=== PATIENT | male | born 1955 | race Caucasian/White ===

== ENCOUNTER → 2022-12-10 | Outpatient (CLI) | payer MEDICARE ==
[2022-12-10 11:18] LABS: INR 1.4 (<1.2); Prothrombin Time 13.8 sec (9.0-12.0)
== END | disposition home or self-care (01) ==
LOC: LABWHC1 09:47
PROVIDERS: ATTEND Dentist Oral and Maxillofacial Surgery
DX: D68.32 Hemorrhagic disorder due to extrinsic circulating anticoagulants (principal)
CPT/HCPCS: 36415; 85610

== ENCOUNTER 2024-04-10 09:52 | Observation (INO) | payer MEDICARE, OTHER ==
[2024-04-10] MEDS: SODIUM CHLORIDE 0.9% 1,000 ML IV ONE (10:10)
[2024-04-10] MEDS: MORPHINE SULFATE 4 MG/ML SYRINGE IVP STA (10:12)
[2024-04-10] MEDS: KETOROLAC 15 MG/ML 1 ML VIAL IVP STA (10:12)
[2024-04-10] MEDS: PANTOPRAZOLE 40 MG/10 ML VIAL IVP STA (10:12)
[2024-04-10] MEDS: SODIUM CHLORIDE 0.9% 1,000 ML IV STA (10:13)
[2024-04-10 10:15] LABS: Basophils % (A) 1 %; Eosinophils # (A) 0.1 k/uL (0-0.7); Eosinophils % (A) 2 %; HCT 40.8 % (39.0-53.0); HGB 13.7 gm/dL (13.0-17.5); Lymphocytes # (A) 1.5 k/uL (1.0-4.8); Lymphocytes % (A) 25 %; MCH 30.4 pg (25.0-35.0); MCHC 33.5 g/dL (31.0-37.0); MCV 90.6 fL (80.0-100.0); Mean Platelet Volume 8.2; Monocytes # (A) 0.3 k/uL (0-1.0); Monocytes % (A) 6 %; Neutrophils # (A) 3.8 k/uL (1.3-7.7); Neutrophils % (A) 64 %; Platelet Count 169 k/uL (150-450); RDW 14.2 % (11.5-15.5); WBC 5.8 k/uL (3.8-10.6)
[2024-04-10 10:24] LABS: INR 3.5 (<1.2); Partial Thromboplastin Time 38.7 sec (22.0-30.0); Prothrombin Time 34.5 sec (10.0-12.5)
[2024-04-10 10:28] LABS: ALT 64 U/L (4-49); AST 49 U/L (17-59); African American GFR (CKD) >90 (>60 ml/min/1.73 sqM); Albumin 4.9 g/dL (3.5-5.0); Alkaline Phosphatase 71 U/L (38-126); Anion Gap 9 mmol/L; Blood Urea Nitrogen 14 mg/dL (9-20); Calcium 9.1 mg/dL (8.4-10.2); Carbon Dioxide 24 mmol/L (22-30); Chloride 106 mmol/L (98-107); Glucose 120 mg/dL (74-99); Magnesium 1.8 mg/dL (1.6-2.3); Non-African American GFR(CKD) >90 (>60 ml/min/1.73 sqM); Potassium 4.7 mmol/L (3.5-5.1); Sodium 139 mmol/L (137-145); Total Bilirubin 0.6 mg/dL (0.2-1.3); Total Protein 7.5 g/dL (6.3-8.2)
--- NOTE | 2024-04-10 10:33 | ED ---
General Adult HPI - General Chief complaint: Chest Pain Stated complaint: Chest Pain Time Seen by Provider: 04/10/24 09:52 Source: patient, EMS, RN notes reviewed, old records reviewed Limitations: no limitations - History of Present Illness Initial comments: Is a 69-year-old male presents emergency department plaint of chest pain. Patient does have a history of CAD with a prior cardiac stent, hyperlipidemia, diabetes, hypertension, chronic shoulder issues. Patient states that he woke at 0 500 today from chest pain. It was in the left chest with radiation to the left shoulder and down the left arm. Took nitro without relief. Received 3 additional nitro without relief. Workup at the outside facility negative for cardiac workup. Troponin was undetectable and EKG unremarkable. Patient is chest pain did not respond to nitro but it did respond to morphine. Transferred here as he follows up with cardiology here [facility]. Patient was transferred from [facility]. - Related Data Home Medications Medication Instructions Recorded Confirmed Atorvastatin [Lipitor] 80 mg PO DAILY 12/13/22 04/10/24 Celecoxib [CeleBREX] 100 mg PO W/BRKFST 12/13/22 04/10/24 Gabapentin 300 mg PO TID 12/13/22 04/10/24 Isosorbide Mononitrate ER [Imdur] 30 mg PO DAILY 12/13/22 04/10/24 Lacosamide [Vimpat] 150 mg PO BID 12/13/22 04/10/24 Metoprolol Tartrate [Lopressor] 25 mg PO BID 12/13/22 04/10/24 [place]-3 Acid Ethyl Esters [Lovaza] 1 gm PO BID 12/13/22 04/10/24 Omeprazole 20 mg PO DAILY 12/13/22 04/10/24 Warfarin Sodium 6 mg PO HS 12/13/22 04/10/24 allopurinoL [Zyloprim] 100 mg PO BID 12/13/22 04/10/24 lisinopriL [Zestril] 10 mg PO DAILY 12/13/22 04/10/24 metFORMIN HCL 500 mg PO BID 12/13/22 04/10/24 Sulfamethox-Tmp 800-160Mg [Bactrim 1 tab PO Q12HR 04/10/24 04/10/24 DS 800-160 mg] valACYclovir HCL [Valacyclovir] 1,000 mg PO BID 04/10/24 04/10/24 Allergies Allergy/AdvReac Type Severity Reaction Status Date / Time No Known Allergies Allergy Verified 04/10/24 10:32 Review of Systems ROS Statement: Those systems with pertinent positive or pertinent negative responses have been documented in the HPI. Review of Systems: CONST: Denies fever EYES: Denies blurry vision ENT: Denies nasal congestion C/V: Endorses improved left-sided chest pain. RESP: Denies shortness of breath GI: Denies abdominal pain : Denies dysuria SKIN: Denies rash. MSK: Denies joint pain. NEURO: Denies headache ROS Other: All systems not noted in ROS Statement are negative. Past Medical History Past Medical History: Coronary Artery Disease (CAD), Chest Pain / Angina, CVA/TIA, Diabetes Mellitus, Fibromyalgia, GERD/Reflux, Hyperlipidemia, Hypertension, Pneumonia, Pulmonary Embolus (PE), Seizure Disorder, Sleep Apnea/CPAP/BIPAP, Syncope Additional Past Medical History / Comment(s): degenerative disc disease History of Any Multi-Drug Resistant Organisms: None Reported Past Surgical History: Back Surgery, Heart Catheterization With Stent Additional Past Surgical History / Comment(s): plate in neck, left arm, left shoulder Date of Last Stent Placement:: 2016 Past Psychological History: No Psychological Hx Reported Smoking Status: Former smoker Past Alcohol Use History: Heavy Past Drug Use History: None Reported General Exam - General Exam Comments Initial Comments: General: Appears in no acute distress. HEAD: Normal with no signs of head trauma. EYES: PERRLA, EOMI, conjunctiva normal, no discharge. ENT: Hearing grossly intact, normal oropharynx. RESPIRATORY: Clear breath sounds bilaterally. No wheezes, rales, or rhonchi. C/V: Regular rate and rhythm. S1 and S2 auscultated, no edema, peripheral pulses 2+ and intact throughout ABD: Abd is soft, nontender, nondistended EXT: Chest pain is reproducible on palpation over the left anterior chest wall with radiation towards the left shoulder. Worse with movement of the left shoulder as well. SKIN: No rashes or lesions observed on exposed skin. NEURO: Alert and oriented x 4. Limitations: no limitations Course Vital Signs 04/10/24 04/10/24 04/10/24 09:53 10:40 11:03 Temperature 62 F L Pulse Rate 74 Respiratory 20 Rate Blood Pressure 139/96 83/53 89/54 O2 Sat by Pulse 96 Oximetry Medical Decision Making - Medical Decision Making Was pt. sent in by a medical professional or institution (ALEXA Gavin, SAFETY NET MAKER, urgent care, hospital, or long term...) When possible be specific @ -Transferred from [facility] for cardiac observation. Did you speak to anyone other than the patient for history (EMS, parent, family, police, friend...)? What history was obtained from this source @ -No Did you review nursing and triage notes (agree or disagree)? Why? @ -I reviewed and agree with nursing and triage notes Were old charts reviewed (outside hosp., previous admission, EMS record, old EKG, old radiological studies, urgent care reports/EKG's, long term records)? Report findings @ -Reviewed chart from [facility] which revealed unremarkable EKG as well as undetectable troponin. Remainder the blood work was unremarkable as well. Chest x-ray revealed no obvious acute cardiopulmonary process. Differential Diagnosis (chest pain, altered mental status, abdominal pain women, abdominal pain men, vaginal bleeding, weakness, fever, dyspnea, syncope, headache, dizziness, GI bleed, back pain, seizure, CVA, palpatations, mental health, musculoskeletal)? @ -Differential Chest Pain: Stable Angina, Unstable Angina, STEMI, NSTEMI Aortic Dissection, Pneumothorax, Musculoskeletal, Esophageal Spasm GERD, Cholecystitis, Pancreatitis, Zoster, this is not meant to be an all-inclusive list. EKG interpreted by me (3pts min.). @ -As above X-rays interpreted by me (1pt min.). @ -None done CT interpreted by me (1pt min.). @ -None done U/S interpreted by me (1pt. min.). @ -None done What testing was considered but not performed or refused? (CT, X-rays, U/S, labs)? Why? @ -None What meds were considered but not given or refused? Why? @ -Considered aspirin however patient already received aspirin by EMS earlier this morning.Chest pain did not respond to nitro at outside facility and therefore no additional nitro will be administered at this time. Did you discuss the management of the patient with other professionals (professionals i.e. ALEXA Gavin, SAFETY NET MAKER, lab, RT, psych nurse, social service technician, day treatment clinician/art therapist, teacher, command center officer, registered nurse hh case manager)? Give summary @ -Discussed with consumer advocate Dr. Honeycutt who is rounding in the ER at the time and did evaluate the patient at bedside with myself. Agrees that this seems more likely chest wall pain but recommended Toradol, Protonix administration was in agreement plan for trending the troponin. Spoke with the admitting provider, Dr. Rivera who accepted the admission. Was smoking cessation discussed for >3mins.? @ -No Was critical care preformed (if so, how long)? @ -No Were there social determinants of health that impacted care today? How? (Homelessness, low income, unemployed, alcoholism, drug addiction, transportat ion, low edu. Level, literacy, decrease access to med. care, fci, rehab)? @ -No Was there de-escalation of care discussed even if they declined (Discuss DNR or withdrawal of care, Hospice)? DNR status @ -No What co-morbidities impacted this encounter? (DM, HTN, Smoking, COPD, CAD, Cancer, CVA, ARF, Chemo, Hep., AIDS, mental health diagnosis, sleep apnea, morbid obesity)? @ -CAD Was patient admitted / discharged? Hospital course, mention meds given and route, prescriptions, significant lab abnormalities, going to OR and other pertinent info. @ -Patient presents as a transfer from [facility] for cardiac observation. Seems to be more chest wall pain. Discussed and evaluated patient with Dr. Honeycutt of cardiology who agreed. However we will admit the patient cardiac observation. He will be given IV morphine, Toradol, Protonix as well as started on maintenance fluids. Will repeat repeat labs and EKG. Chest x-ray will be uploaded to our system. Patient was in agreement this plan. Vitals are within acceptable limits. EKG shows no signs of acute ischemia.Patient's labs remarkable for elevated INR in the setting of Coumadin use at 3.5. Troponin is undetectable. Patient had an episode of what appeared to be vasovagal syncope. Patient's chest pain was resolved at that time. Nitroglycerin paste was removed as it does not appear to be effective at this time. Patient was bolused a liter of fluid and symptoms resolved. Resting comfortably at that time. Repeat EKG showed no dynamic changes. Undiagnosed new problem with uncertain prognosis? @ -No Drug Therapy requiring intensive monitoring for toxicity (Heparin, Nitro, Insulin, Cardizem)? @ -No Were any procedures done? @ -No Diagnosis/symptom? @ -Chest pain Acute, or Chronic, or Acute on Chronic? @ -Acute Uncomplicated (without systemic symptoms) or Complicated (systemic symptoms)? @ -Complicated Side effects of treatment? @ -No Exacerbation, Progression, or Severe Exacerbation? @ -No Poses a threat to life or bodily function? How? (Chest pain, [place], [place], pneumonia, PE, COPD, DKA, ARF, appy, cholecystitis, CVA, Diverticulitis, Homicidal, Suicidal, threat to staff... and all critical care pts) @ -Potentially, yes - Lab Data Result diagrams: 04/10/24 10:04 04/10/24 10: Lab Results 04/10/24 04/10/24 04/10/24 Range/Units 10:04 10:04 10:04 WBC 5.8 (3.8-10.6) k/uL RBC 4.50 (4.30-5.90) m/uL Hgb 13.7 (13.0-17.5) gm/dL Hct 40.8 (39.0-53.0) % MCV 90.6 (80.0-100.0) fL MCH 30.4 (25.0-35.0) pg MCHC 33.5 (31.0-37.0) g/dL RDW 14.2 (11.5-15.5) % Plt Count 169 (150-450) k/uL MPV 8.2 Neutrophils % 64 % Lymphocytes % 25 % Monocytes % 6 % Eosinophils % 2 % Basophils % 1 % Neutrophils # 3.8 (1.3-7.7) k/uL Lymphocytes # 1.5 (1.0-4.8) k/uL Monocytes # 0.3 (0-1.0) k/uL Eosinophils # 0.1 (0-0.7) k/uL Basophils # 0.0 (0-0.2) k/uL PT 34.5 H (10.0-12.5) sec INR 3.5 H (<1.2) APTT 38.7 H (22.0-30.0) sec Sodium 139 (137-145) mmol/L Potassium 4.7 (3.5-5.1) mmol/L Chloride 106 (98-107) mmol/L Carbon Dioxide 24 (22-30) mmol/L Anion Gap 9 mmol/L BUN 14 (9-20) mg/dL Creatinine 0.82 (0.66-1.25) mg/dL Est GFR (CKD-EPI)AfAm >90 (>60 ml/min/1.73 sqM) Est GFR (CKD-EPI)NonAf >90 (>60 ml/min/1.73 sqM) Glucose 120 H (74-99) mg/dL Calcium 9.1 (8.4-10.2) mg/dL Magnesium 1.8 (1.6-2.3) mg/dL Total Bilirubin 0.6 (0.2-1.3) mg/dL AST 49 (17-59) U/L ALT 64 H (4-49) U/L Alkaline Phosphatase 71 (38-126) U/L Troponin I (0.000-0.034) ng/mL Total Protein 7.5 (6.3-8.2) g/dL Albumin 4.9 (3.5-5.0) g/dL 04/10/24 Range/Units 10:04 WBC (3.8-10.6) k/uL RBC (4.30-5.90) m/uL Hgb (13.0-17.5) gm/dL Hct (39.0-53.0) % MCV (80.0-100.0) fL MCH (25.0-35.0) pg MCHC (31.0-37.0) g/dL RDW (11.5-15.5) % Plt Count (150-450) k/uL MPV Neutrophils % % Lymphocytes % % Monocytes % % Eosinophils % % Basophils % % Neutrophils # (1.3-7.7) k/uL Lymphocytes # (1.0-4.8) k/uL Monocytes # (0-1.0) k/uL Eosinophils # (0-0.7) k/uL Basophils # (0-0.2) k/uL PT (10.0-12.5) sec INR (<1.2) APTT (22.0-30.0) sec Sodium (137-145) mmol/L Potassium (3.5-5.1) mmol/L Chloride (98-107) mmol/L Carbon Dioxide (22-30) mmol/L Anion Gap mmol/L BUN (9-20) mg/dL Creatinine (0.66-1.25) mg/dL Est GFR (CKD-EPI)AfAm (>60 ml/min/1.73 sqM) Est GFR (CKD-EPI)NonAf (>60 ml/min/1.73 sqM) Glucose (74-99) mg/dL Calcium (8.4-10.2) mg/dL Magnesium (1.6-2.3) mg/dL Total Bilirubin (0.2-1.3) mg/dL AST (17-59) U/L ALT (4-49) U/L Alkaline Phosphatase (38-126) U/L Troponin I <0.012 (0.000-0.034) ng/mL Total Protein (6.3-8.2) g/dL Albumin (3.5-5.0) g/dL - EKG Data -: EKG Interpreted by Me EKG Comments: 12-lead Electrocardiogram Interpretation Note EKG was reviewed and interpreted by myself. 12-lead ECG performed at 1010 is interpreted by me as revealing normal sinus rhythm at a rate of 65 beats per mi nute. [place] is normal. IA interval is 177 ms, QRS durations 119 ms, QTc is 391 ms.. There were no ST or T wave abnormalities to suggest myocardial ischemia or injury. R wave progression across the precordium was satisfactory. By my interpretation this EKG is non-diagnostic for acute ischemia. 12-lead Electrocardiogram Interpretation Note EKG was reviewed and interpreted by myself. 12-lead ECG performed at 1047 is interpreted by me as revealing sinus bradycardia at a rate of 42 beats per mi nute. [place] is normal. IA interval is 165 ms, QRS duration is 111 ms, QTc is 383 ms.. There were no ST or T wave abnormalities to suggest myocardial ischemia or injury. R wave progression across the precordium was satisfactory. By my interpretation this EKG is non-diagnostic for acute ischemia. Disposition Clinical Impression: Chest pain Disposition: ADMITTED IP TO THIS [facility] Condition: Stable Time of Disposition: 10:33
[2024-04-10] MEDS ORDERED: NALOXONE 0.4 MG/ML 1 ML VIAL IV PRN (10:36)
[2024-04-10] MEDS ORDERED: MORPHINE SULFATE 4 MG/ML SYRINGE IV PRN (10:36)
[2024-04-10] MEDS ORDERED: DEXTROSE 50% SYRINGE 50 ML IVP PRN ×2 (12:54)
[2024-04-10 13:06] LABS: Glucose,Whole Blood 113 mg/dL (70-110)
[2024-04-10] MEDS: INSULIN ASPART (NovoLOG) 100 UNIT/ML VIAL SQ SCH (13:06)
[2024-04-10] MEDS: ATORVASTATIN 80 MG TAB PO SCH (13:13)
[2024-04-10] MEDS: allopurinoL 100 MG TAB PO SCH (13:13)
[2024-04-10] MEDS: lisinopriL 10 MG TAB PO SCH (13:14)
[2024-04-10] MEDS: LACOSAMIDE 150 MG TABLET PO SCH (13:14)
[2024-04-10] MEDS: NON FORMULARY DRUG (Omeprazole [Omeprazole] 20 MG Capsule.Dr) PO SCH (13:14)
[2024-04-10] MEDS: ISOSORBIDE MONONITRATE ER 30 MG TAB.ER.24H PO SCH (13:14)
[2024-04-10] MEDS: METOPROLOL TARTRATE 25 MG TAB PO SCH (13:14)
[2024-04-10] MEDS: GABAPENTIN 300 MG CAP PO SCH (15:32)
[2024-04-10 17:01] LABS: Glucose,Whole Blood 157 mg/dL (70-110)
[2024-04-10] MEDS: metFORMIN 500 MG TAB PO SCH (17:04)
--- NOTE | 2024-04-10 20:38 | P.HPIM ---
History of Present Illness H&P Date: 04/10/24 Chief Complaint: Sharp chest pain This is a pleasant 69-year-old patient follows Dr. Wayne Durán. Patient has known CAD with stent. About 11 years ago. About 5 AM woken up with with sharp pains in the left side of the chest. Going down the left arm. No dizziness no lightheadedness. No shortness of breath. Symptoms lasted good over 2 hours. Patient had a cold about 3 weeks ago. Also recovered from shingles. 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 Review of systems: GEN.: None EYES: None HEENT: None NECK: None RESPIRATORY: None CARDIOVASCULAR: As above GASTROINTESTINAL: None GENITOURINARY: None MUSCULOSKELETAL: Some joint pains LYMPHATICS: None HEMATOLOGICAL: None PSYCHIATRY: None NEUROLOGICAL: None Past medical history to include: CAD with stent about 11years ago, diabetes, fibromyalgia, GERD, hypertension, hyperlipidemia, pulmonary embolism, seizure disorder, obstructive sleep apnea uses CPAP, DJD, back surgery Social history: Patient smoked up to 3 packs a day for 36 years stopped about 17years ago. Alcohol use in the past l. Lives alone. On SSI. Physical examination: VITAL SIGNS: Afebrile, 74, 20, 139 x 96, 96% room GENERAL: BMI 35.2, resting in bed comfortable EYES: Pupils equal. Conjunctiva normal. HEENT: External appearance of nose and ears normal, oral cavity grossly normal. NECK: JVD not raised; masses not palpable. HEART: First and second heart sounds are normal; no edema. LUNGS: Respiratory rate normal; decreased breath sounds. ABDOMEN: Soft, nontender, liver spleen not palpable, no masses palpable. PSYCH: Alert and oriented x3; mood and affect normal. MUSCULOSKELETAL:No Clubbing/cyanosis;muscles-grossly intact some reproducible pain left costochondral junction NEUROLOGICAL: Cranial nerves grossly intact; no facial asymmetry, power and sensation grossly intact. LYMPHATICS: No lymph nodes palpable in the axilla and neck INVESTIGATIONS, reviewed in the clinical context: April 10: White count 5.8 hemoglobin 13.7 platelets 169 sodium 139 potassium 4.7 creatinine 0.82 Troponin I less than 0.012 x 3 Assessment and plan: -Left chest wall pain some reproducibility in a patient with known coronary artery disease. Aspirin. Lipitor. Lopressor. Cardiology consulted. Troponin negative -CAD with a prior stent Aspirin, Lipitor, Lopressor. -GERD Protonix -Diabetes mellitus type 2 on oral hypoglycemic Glucophage -Primary osteoarthritis Celebrex -Essential hypertension Lopressor, Zestril, -Hyperuricemia Allopurinol -Hyperlipidemia Lipitor 80 mg -Seizure disorder vimpat -Chronic pulmonary embolism On Coumadin -Full code Care was discussed with the patient. Cardiology consulted. Past Medical History Past Medical History: Coronary Artery Disease (CAD), Chest Pain / Angina, CVA/TIA, Diabetes Mellitus, Fibromyalgia, GERD/Reflux, Hyperlipidemia, Hype rtension, Pneumonia, Pulmonary Embolus (PE), Seizure Disorder, Sleep Apnea/CPAP/BIPAP, Syncope Additional Past Medical History / Comment(s): degenerative disc disease History of Any Multi-Drug Resistant Organisms: None Reported Past Surgical History: Back Surgery, Heart Catheterization With Stent Additional Past Surgical History / Comment(s): plate in neck, left arm, left shoulder Date of Last Stent Placement:: 2016 Past Psychological History: No Psychological Hx Reported Smoking Status: Former smoker Past Alcohol Use History: Heavy Past Drug Use History: None Reported Medications and Allergies Home Medications Medication Instructions Recorded Confirmed Type Atorvastatin [Lipitor] 80 mg PO DAILY 12/13/22 04/10/24 History Celecoxib [CeleBREX] 100 mg PO W/BRKFST 12/13/22 04/10/24 History Gabapentin 300 mg PO TID 12/13/22 04/10/24 History Isosorbide Mononitrate ER [Imdur] 30 mg PO DAILY 12/13/22 04/10/24 History Lacosamide [Vimpat] 150 mg PO BID 12/13/22 04/10/24 History Metoprolol Tartrate [Lopressor] 25 mg PO BID 12/13/22 04/10/24 History [place]-3 Acid Ethyl Esters [Lovaza] 1 gm PO BID 12/13/22 04/10/24 History Omeprazole 20 mg PO DAILY 12/13/22 04/10/24 History Warfarin Sodium 6 mg PO HS 12/13/22 04/10/24 History allopurinoL [Zyloprim] 100 mg PO BID 12/13/22 04/10/24 History lisinopriL [Zestril] 10 mg PO DAILY 12/13/22 04/10/24 History metFORMIN HCL 500 mg PO BID 12/13/22 04/10/24 History Sulfamethox-Tmp 800-160Mg [Bactrim 1 tab PO Q12HR 04/10/24 04/10/24 History DS 800-160 mg] valACYclovir HCL [Valacyclovir] 1,000 mg PO BID 04/10/24 04/10/24 History Allergies Allergy/AdvReac Type Severity Reaction Status Date / Time No Known Allergies Allergy Verified 04/10/24 10:32 Physical Exam Vitals: Vital Signs Temp Pulse Pulse Resp BP BP Pulse Ox 04/10/24 13:46 98.5 F 69 16 146/70 97 04/10/24 13:14 97.9 F 60 18 136/74 95 04/10/24 11:03 62 F L 89/54 04/10/24 10:40 83/53 04/10/24 09:53 74 20 139/96 96 Intake and Output 04/10/24 04/10/24 04/10/24 06:59 14:59 22:59 Intake Total 75 Balance 75 Intake: Intake, IV Titration 75 Amount Sodium Chloride 0.9% 1, 75 000 ml @ 75 mls/hr IV . [id number] STA Rx#:[id number] Other: # Voids 2 # Bowel Movements 1 Weight 111.13 kg Results CBC & Chem 7: 04/10/24 10:04 04/10/24 10:04 Labs: Abnormal Lab Results - Last 24 Hours (Table) 04/10/24 04/10/24 04/10/24 Range/Units 10:04 10:04 13:04 PT 34.5 H (10.0-12.5) sec INR 3.5 H (<1.2) APTT 38.7 H (22.0-30.0) sec Glucose 120 H (74-99) mg/dL POC Glucose (mg/dL) 113 H (70-110) mg/dL ALT 64 H (4-49) U/L 04/10/24 Range/Units 16:59 PT (10.0-12.5) sec INR (<1.2) APTT (22.0-30.0) sec Glucose (74-99) mg/dL POC Glucose (mg/dL) 157 H (70-110) mg/dL ALT (4-49) U/L Thrombosis Risk Factor Assmnt - Choose All That Apply Each Factor Represents 1 point: Obesity (BMI >25) Each Risk Factor Represents 2 Points: Age 61-74 years Each Risk Factor Represents 3 Points: Family history of DVT/PE, History of DVT/PE Thrombosis Risk Factor Assessment Total Risk Factor Score: 9 Thrombosis Risk Factor Assessment Level: High Risk
[2024-04-10 21:06] LABS: Glucose,Whole Blood 77 mg/dL (70-110)
[2024-04-11 02:35] LABS: Glucose,Whole Blood 117 mg/dL (70-110)
[2024-04-11 06:09] LABS: Glucose,Whole Blood 108 mg/dL (70-110)
[2024-04-11] MEDS: PANTOPRAZOLE 40 MG TABLET PO SCH (06:27)
[2024-04-11] MEDS ORDERED: DOBUTamine DRIP for NUC MED 500 MG in DEXTROSE/WATER 1 250ML.BAG IV PRN (08:06)
[2024-04-11 08:31] LABS: ALT 57 U/L (10-49); AST 41 U/L (14-35); Albumin 4.2 g/dL (3.8-4.9); Albumin/Globulin Ratio 2.33 Ratio (1.60-3.17); Alkaline Phosphatase 70 U/L (41-126); Blood Urea Nitrogen 17.1 mg/dL (9.0-27.0); Calcium 8.6 mg/dL (8.7-10.3); Carbon Dioxide 22.8 mmol/L (21.6-31.8); Chloride 107 mmol/L (96-109); Globulin 1.8 g/dL (1.6-3.3); Glucose 121 mg/dL (70-110); Potassium 4.3 mmol/L (3.5-5.5); Sodium 140 mmol/L (135-145); Total Bilirubin 0.5 mg/dL (0.3-1.2)
[2024-04-11 08:34] LABS: Basophils # (A) 0.05 X 10*3/uL (0.00-0.10); Basophils % (A) 0.9 %; Eosinophils # (A) 0.18 X 10*3/uL (0.04-0.35); Eosinophils % (A) 3.4 %; HCT 37.7 % (39.6-50.0); HGB 12.6 g/dL (13.0-17.0); Lymphocytes # (A) 1.76 X 10*3/uL (0.90-5.00); Lymphocytes % (A) 32.8 %; MCH 30.2 pg (27.0-32.0); MCHC 33.4 g/dL (32.0-37.0); MCV 90.4 FL (80.0-97.0); Mean Platelet Volume 11.2 FL (9.5-12.2); Monocytes # (A) 0.44 X 10*3/uL (0.20-1.00); Monocytes % (A) 8.2 %; NRBC Per 100 WBC 0 X 10*3/uL (0.00-0.01); Neutrophils # (A) 2.92 X 10*3/uL (1.80-7.70); Neutrophils % (A) 54.5 %; Platelet Count 138 X 10*3/uL (140-440); RBC 4.17 X 10*6/uL (4.40-5.60); RDW 13.6 % (11.5-14.5); WBC 5.36 X 10*3/uL (4.50-10.00)
[2024-04-11] MEDS ORDERED: PANTOPRAZOLE 40 MG/10 ML VIAL IV SCH (09:00)
--- NOTE | 2024-04-11 11:04 | P.CRDCN ---
History of Present Illness Consult date: 04/11/24 Consult reason: chest pain History of present illness: This is a 69-year-old male patient of Dr. Honeycutt with past medical history of coronary artery disease with stent placement greater than 20 years ago, moderate LVH with no LVOT obstruction, hypertension, diabetes mellitus type 2, obesity, history of PE on warfarin. We have been asked to evaluate the patient for chest pain. Patient states he developed sharp chest pain on the left side of his chest that also went to his left arm and the left side of his neck. The pain did not change with deep breathing. Nitroglycerin did not help his pain. He states it was similar to pain he had before his stent placement 20 years ago. Patient has quit smoking. Blood pressure 149/69, heart rate 56, pulse ox 96% on room air. Patient was initially seen at [facility] and transferred to [facility]. EKG: Sinus rhythm with no acute ST-T wave changes Laboratory studies: D-dimer 0.21. WBC 5.3, hemoglobin 12.6. Electrolytes and renal function are normal. AST 41, ALT 57. Home cardiac medications: Atorvastatin 80 mg daily, Imdur 30 mg daily, lisinopril 10 mg daily, Lopressor 25 mg twice daily, Lovaza 1 g twice daily, warfarin 6 mg at bedtime. Dobutamine stress echocardiogram performed 12/2022 was normal Echocardiogram performed 12/2022 reveals normal LV function with EF 50 to 55%, moderate concentric LVH. Normal diastolic filling pressure. No significant ventricular dysfunction. No prior echocardiogram to compare. Review Of Systems: At the time of my exam: CONSTITUTIONAL: Denies fever or chills. HEENT: Denies blurred vision, vision changes, or eye pain. Denies hemoptysis CARDIOVASCULAR: Reports chest pain. Denies orthopnea. Denies PND. Denies palpitations RESPIRATORY: Denies shortness of breath. GASTROINTESTINAL: Denies abdominal pain. Denies nausea or vomiting. HEMATOLOGIC: Denies bleeding disorders. GENITOURINARY: Denies any blood in urine. SKIN: Denies puritis. Denies rash. Physical examination: Gen: This is a 69-year-old male in no acute distress VS: reviewed HEENT: Head is atraumatic, normocephalic. Pupils equal, round. Sclerae is anicteric. NECK: Supple. No JVD. LUNGS: Clear to auscultation. No wheezes or rhonchi. No intercostal retractions. HEART: Regular rate and rhythm. Systolic murmur. ABDOMEN: Soft No tenderness. EXTREMITIES: No pedal edema. No calf tenderness. NEUROLOGICAL: Patient is awake, alert and oriented x3. Assessment: Atypical chest pain, acute coronary syndrome ruled out History of coronary artery disease with stent placement in the past Moderate LVH with no LVOT obstruction Hypertension Diabetes mellitus type 2 Obesity History of PE on warfarin Plan: Resume patient's home cardiac medications Schedule patient for dobutamine stress echocardiogram which has been rescheduled for tomorrow as patient received beta-sohan this morning N.p.o. after midnight Patient may receive blood pressure medications but no beta-sohan in the morning. Further recommendations to follow based upon clinical course Thank you kindly for this consultation. Nurse practitioner note has been reviewed, I agree with documented findings and plan of care. Patient was seen and examined. Past Medical History Past Medical History: Coronary Artery Disease (CAD), Chest Pain / Angina, CVA/TIA, Diabetes Mellitus, Fibromyalgia, GERD/Reflux, Hyperlipidemia, Hypertension, Pneumonia, Pulmonary Embolus (PE), Seizure Disorder, Sleep Apnea/CPAP/BIPAP, Syncope Additional Past Medical History / Comment(s): degenerative disc disease History of Any Multi-Drug Resistant Organisms: None Reported Past Surgical History: Back Surgery, Heart Catheterization With Stent Additional Past Surgical History / Comment(s): plate in neck, left arm, left shoulder Date of Last Stent Placement:: 2016 Past Psychological History: No Psychological Hx Reported Smoking Status: Former smoker Past Alcohol Use History: Heavy Past Drug Use History: None Reported Medications and Allergies Home Medications Medication Instructions Recorded Confirmed Type Atorvastatin [Lipitor] 80 mg PO DAILY 12/13/22 04/10/24 History Celecoxib [CeleBREX] 100 mg PO W/BRKFST 12/13/22 04/10/24 History Gabapentin 300 mg PO TID 12/13/22 04/10/24 History Isosorbide Mononitrate ER [Imdur] 30 mg PO DAILY 12/13/22 04/10/24 History Lacosamide [Vimpat] 150 mg PO BID 12/13/22 04/10/24 History Metoprolol Tartrate [Lopressor] 25 mg PO BID 12/13/22 04/10/24 History [place]-3 Acid Ethyl Esters [Lovaza] 1 gm PO BID 12/13/22 04/10/24 History Omeprazole 20 mg PO DAILY 12/13/22 04/10/24 History Warfarin Sodium 6 mg PO HS 12/13/22 04/10/24 History allopurinoL [Zyloprim] 100 mg PO BID 12/13/22 04/10/24 History lisinopriL [Zestril] 10 mg PO DAILY 12/13/22 04/10/24 History metFORMIN HCL 500 mg PO BID 12/13/22 04/10/24 History Sulfamethox-Tmp 800-160Mg [Bactrim 1 tab PO Q12HR 04/10/24 04/10/24 History DS 800-160 mg] valACYclovir HCL [Valacyclovir] 1,000 mg PO BID 04/10/24 04/10/24 History Allergies Allergy/AdvReac Type Severity Reaction Status Date / Time No Known Allergies Allergy Verified 04/10/24 10:32 Physical Exam Vitals: Vital Signs Temp Pulse Pulse Resp BP BP Pulse Ox 04/11/24 07:00 97.5 F L 56 L 16 149/69 96 04/11/24 02:26 97.5 F L 61 18 164/78 96 04/11/24 01:49 61 04/10/24 21:33 61 04/10/24 19:47 97.4 F L 61 16 137/68 95 04/10/24 13:46 98.5 F 69 16 146/70 97 04/10/24 13:14 97.9 F 60 18 136/74 95 04/10/24 11:03 62 F L 89/54 04/10/24 10:40 83/53 04/10/24 09:53 74 20 139/96 96 Intake and Output 04/10/24 04/11/24 04/11/24 22:59 06:59 14:59 Other: Voiding Method Toilet # Voids 1 Results 04/11/24 05:13 04/11/24 05:13 Cardiac Enzymes 04/10/24 04/10/24 04/10/24 Range/Units 10:04 10:04 14:06 AST 49 (17-59) U/L Troponin I <0.012 <0.012 (0.000-0.034) ng/mL 04/10/24 Range/Units 16:21 AST (17-59) U/L Troponin I <0.012 (0.000-0.034) ng/mL Coagulation 04/10/24 Range/Units 10:04 PT 34.5 H (10.0-12.5) sec APTT 38.7 H (22.0-30.0) sec CBC 04/10/24 Range/Units 10:04 WBC 5.8 (3.8-10.6) k/uL RBC 4.50 (4.30-5.90) m/uL Hgb 13.7 (13.0-17.5) gm/dL Hct 40.8 (39.0-53.0) % Plt Count 169 (150-450) k/uL Comprehensive Metabolic Panel 04/10/24 Range/Units 10:04 Sodium 139 (137-145) mmol/L Potassium 4.7 (3.5-5.1) mmol/L Chloride 106 (98-107) mmol/L Carbon Dioxide 24 (22-30) mmol/L BUN 14 (9-20) mg/dL Creatinine 0.82 (0.66-1.25) mg/dL Glucose 120 H (74-99) mg/dL Calcium 9.1 (8.4-10.2) mg/dL AST 49 (17-59) U/L ALT 64 H (4-49) U/L Alkaline Phosphatase 71 (38-126) U/L Total Protein 7.5 (6.3-8.2) g/dL Albumin 4.9 (3.5-5.0) g/dL Current Medications Generic Name Dose Route Start Last Admin Trade Name Abhinavq PRN Reason Stop Dose Admin Acetaminophen 650 mg 04/10/24 10:36 Acetaminophen Tab 325 Mg Tab PO Q6HR PRN Mild Pain or Fever > 100.5 Allopurinol 100 mg 04/10/24 13:00 04/10/24 21:33 Allopurinol 100 Mg Tab PO 100 mg BID BATSHEVA Administration Atorvastatin Calcium 80 mg 04/10/24 13:00 04/10/24 13:13 Atorvastatin 80 Mg Tab PO Not Given DAILY BATSHEVA Dextrose/Water 25 ml 04/10/24 12:54 Dextrose 50% Syringe 50 Ml IVP PER PROTOCOL PRN Hypoglycemia Protocol Dextrose/Water 50 ml 04/10/24 12:54 Dextrose 50% Syringe 50 Ml IVP PER PROTOCOL PRN Hypoglycemia Protocol Gabapentin 300 mg 04/10/24 16:00 04/10/24 21:33 Gabapentin 300 Mg Cap PO 300 mg TID BATSHEVA Administration Insulin Aspart 0 unit 04/10/24 12:54 04/11/24 06:13 Insulin Aspart (Novolog) 100 Unit/Ml Vial SQ Not Given AC-TID BATSHEVA Protocol Isosorbide Mononitrate 30 mg 04/10/24 13:00 04/10/24 13:14 Isosorbide Mononitrate Er 30 Mg Tab.Er.24h PO Not Given DAILY BATSHEVA Lacosamide 150 mg 04/10/24 13:00 04/10/24 21:33 Lacosamide 150 Mg Tablet PO 150 mg BID BATSHEVA Administration Lisinopril 10 mg 04/10/24 13:00 04/10/24 13:14 Lisinopril 10 Mg Tab PO Not Given DAILY BATSHEVA Metformin HCl 500 mg 04/10/24 17:30 04/10/24 17:04 Metformin 500 Mg Tab PO 500 mg BID-W/MEALS BATSHEVA Administration Metoprolol Tartrate 25 mg 04/10/24 13:00 04/10/24 21:33 Metoprolol Tartrate 25 Mg Tab PO 25 mg BID BATSHEVA Administration Naloxone HCl 0.2 mg 04/10/24 10:36 Naloxone 0.4 Mg/Ml 1 Ml Vial IV Q2M PRN Opioid Reversal Pantoprazole Sodium 40 mg 04/11/24 07:30 04/11/24 06:27 Pantoprazole 40 Mg Tablet PO 40 mg AC-BRKFST BATSHEVA Administration Intake and Output 04/10/24 04/11/24 04/11/24 22:59 06:59 14:59 Other: Voiding Method Toilet # Voids 1 04/10/24 10:04 04/10/24 10:04
[2024-04-11 11:56] LABS: Glucose,Whole Blood 116 mg/dL (70-110)
--- NOTE | 2024-04-11 12:48 | P.PN ---
Progress Note - Text Progress Note Date: 04/11/24 Chief Complaint: Sharp chest pain This is a pleasant 69-year-old patient follows Dr. Wayne Durán. Patient has known CAD with stent. About 11 years ago. About 5 AM woken up with with sharp pains in the left side of the chest. Going down the left arm. No dizziness no lightheadedness. No shortness of breath. Symptoms lasted good over 2 hours. Patient had a cold about 3 weeks ago. Also recovered from shingles. 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 April 11: No further chest pain. Received beta-sohan. Stress test postponed till tomorrow. Active Medications Acetaminophen (Acetaminophen Tab 325 Mg Tab) 650 mg PO Q6HR PRN PRN Reason: Mild Pain or Fever > 100.5 Allopurinol (Allopurinol 100 Mg Tab) 100 mg PO BID [facility] Last Admin: 04/11/24 09:33 Dose: 100 mg Atorvastatin Calcium (Atorvastatin 80 Mg Tab) 80 mg PO DAILY [facility] Last Admin: 04/11/24 09:32 Dose: 80 mg Dextrose/Water (Dextrose 50% Syringe 50 Ml) 25 ml IVP PER PROTOCOL PRN; Protocol PRN Reason: Hypoglycemia Dextrose/Water (Dextrose 50% Syringe 50 Ml) 50 ml IVP PER PROTOCOL PRN; Protocol PRN Reason: Hypoglycemia Gabapentin (Gabapentin 300 Mg Cap) 300 mg PO TID [facility] Last Admin: 04/11/24 09:32 Dose: 300 mg Insulin Aspart (Insulin Aspart (Novolog) 100 Unit/Ml Vial) 0 unit SQ AC-TID [facility]; Protocol Last Admin: 04/11/24 12:21 Dose: Not Given Isosorbide Mononitrate (Isosorbide Mononitrate Er 30 Mg Tab.Er.24h) 30 mg PO DAILY [facility] Last Admin: 04/11/24 09:32 Dose: 30 mg Lacosamide (Lacosamide 150 Mg Tablet) 150 mg PO BID [facility] Last Admin: 04/11/24 09:33 Dose: 150 mg Lisinopril (Lisinopril 10 Mg Tab) 10 mg PO DAILY [facility] Last Admin: 04/11/24 09:33 Dose: 10 mg Metformin HCl (Metformin 500 Mg Tab) 500 mg PO BID-W/MEALS [facility] Last Admin: 04/11/24 10:51 Dose: 500 mg Metoprolol Tartrate (Metoprolol Tartrate 25 Mg Tab) 25 mg PO BID [facility] Last Admin: 04/11/24 09:33 Dose: 25 mg Naloxone HCl (Naloxone 0.4 Mg/Ml 1 Ml Vial) 0.2 mg IV Q2M PRN PRN Reason: Opioid Reversal Pantoprazole Sodium (Pantoprazole 40 Mg Tablet) 40 mg PO AC-BRKFST [facility] Last Admin: 04/11/24 06:27 Dose: 40 mg Past medical history to include: CAD with stent about 11years ago, diabetes, fibromyalgia, GERD, hypertension, hyperlipidemia, pulmonary embolism, seizure disorder, obstructive sleep apnea uses CPAP, DJD, back surgery Social history: Patient smoked up to 3 packs a day for 36 years stopped about 17years ago. Alcohol use in the past l. Lives alone. On SSI. Physical examination: VITAL SIGNS: 97.5, 56, 16, 149 x 69, 96% room air GENERAL: Resting in bed EYES: Pupils equal. Conjunctiva normal. HEENT: External appearance of nose and ears normal, oral cavity grossly normal. NECK: JVD not raised; masses not palpable. HEART: First and second heart sounds are normal; no edema. LUNGS: Respiratory rate normal; decreased breath sounds. ABDOMEN: Soft, nontender, liver spleen not palpable, no masses palpable. PSYCH: Alert and oriented x3; mood and affect normal. MUSCULOSKELETAL:No Clubbing/cyanosis;muscles-grossly intact some reproducible pain left costochondral junction INVESTIGATIONS, reviewed in the clinical context: April 11: White count 5.3 hemoglobin 12.6 potassium 4.3 creatinine 0.9. D- dimer 0.21 April 10: White count 5.8 hemoglobin 13.7 platelets 169 sodium 139 potassium 4.7 creatinine 0.82 Troponin I less than 0.012 x 3 Assessment and plan: -Left chest wall pain some reproducibility in a patient with known coronary artery disease. Aspirin. Lipitor. Lopressor. Cardiology following. Troponin negative Scheduled for stress test for tomorrow as receive beta-sohan today -CAD with a prior stent Aspirin, Lipitor, Lopressor. -GERD Protonix -Diabetes mellitus type 2 on oral hypoglycemic Glucophage -Primary osteoarthritis Celebrex -Essential hypertension Lopressor, Zestril, -Hyperuricemia Allopurinol -Hyperlipidemia Lipitor 80 mg -Seizure disorder vimpat -Chronic pulmonary embolism On Coumadin -Full code No chest pain. Stress test scheduled for tomorrow receive beta-sohan today. Past Medical History Past Medical History: Coronary Artery Disease (CAD), Chest Pain / Angina, CVA/TIA, Diabetes Mellitus, Fibromyalgia, GERD/Reflux, Hyperlipidemia, Hypertension, Pneumonia, Pulmonary Embolus (PE), Seizure Disorder, Sleep Apnea/CPAP/BIPAP, Syncope Additional Past Medical History / Comment(s): degenerative disc disease History of Any Multi-Drug Resistant Organisms: None Reported Past Surgical History: Back Surgery, Heart Catheterization With Stent Additional Past Surgical History / Comment(s): plate in neck, left arm, left shoulder Date of Last Stent Placement:: 2016 Past Psychological History: No Psychological Hx Reported Smoking Status: Former smoker Past Alcohol Use History: Heavy Past Drug Use History: None Reported
[2024-04-11 16:53] LABS: Glucose,Whole Blood 130 mg/dL (70-110)
[2024-04-11 21:04] LABS: Glucose,Whole Blood 118 mg/dL (70-110)
[2024-04-12 06:03] LABS: Glucose,Whole Blood 122 mg/dL (70-110)
[2024-04-12] MEDS ORDERED: REGADENOSON 0.4 MG/5 ML SYRINGE IV PRN (08:43)
[2024-04-12] MEDS ORDERED: AMINOPHYLLINE 500 MG/20 ML VIAL IV PRN (08:43)
[2024-04-12] MEDS ORDERED: CAFFEINE CITRATE 60 MG/3 ML VIAL IV PRN (08:43)
--- NOTE | 2024-04-12 10:38 | P.PN ---
Subjective Progress Note Date: 04/12/24 Consult reason: chest pain History of present illness: This is a 69-year-old male patient of Dr. Honeycutt with past medical history of coronary artery disease with stent placement greater than 20 years ago, moderate LVH with no LVOT obstruction, hypertension, diabetes mellitus type 2, obesity, history of PE on warfarin. We have been asked to evaluate the patient for chest pain. Patient states he developed sharp chest pain on the left side of his chest that also went to his left arm and the left side of his neck. The pain did not change with deep breathing. Nitroglycerin did not help his pain. He states it was similar to pain he had before his stent placement 20 years ago. Patient has quit smoking. Blood pressure 149/69, heart rate 56, pulse ox 96% on room air. Patient was initially seen at [facility] and transferred to [facility]. EKG: Sinus rhythm with no acute ST-T wave changes Laboratory studies: D-dimer 0.21. WBC 5.3, hemoglobin 12.6. Electrolytes and renal function are normal. AST 41, ALT 57. Home cardiac medications: Atorvastatin 80 mg daily, Imdur 30 mg daily, lisinopril 10 mg daily, Lopressor 25 mg twice daily, Lovaza 1 g twice daily, warfarin 6 mg at bedtime. Dobutamine stress echocardiogram performed 12/2022 was normal Echocardiogram performed 12/2022 reveals normal LV function with EF 50 to 55%, moderate concentric LVH. Normal diastolic filling pressure. No significant ventricular dysfunction. No prior echocardiogram to compare. 04/12/2024 Patient is seen and examined. He denies having any chest pain. Yesterday, stress test needed to be delayed due to patient receiving beta-sohan. We are changing dobutamine stress echocardiogram to Lexiscan today. Blood pressure 165/76, heart rate 55, pulse ox 95% on room air. Physical examination: Gen: This is a 69-year-old male in no acute distress VS: reviewed HEENT: Head is atraumatic, normocephalic. Pupils equal, round. Sclerae is anicteric. NECK: Supple. No JVD. LUNGS: Clear to auscultation. No wheezes or rhonchi. No intercostal retra ctions. HEART: Regular rate and rhythm. Systolic murmur. ABDOMEN: Soft No tenderness. EXTREMITIES: No pedal edema. No calf tenderness. NEUROLOGICAL: Patient is awake, alert and oriented x3. Assessment: Atypical chest pain, acute coronary syndrome ruled out History of coronary artery disease with stent placement in the past Moderate LVH with no LVOT obstruction Hypertension Diabetes mellitus type 2 Obesity History of PE on warfarin Plan: Continue patient's home cardiac medications Schedule patient for Lexiscan stress test today If Lexiscan stress test is unremarkable, patient is cleared for discharge from cardiology and may follow-up in the office with Dr. Honeycutt in 1 to 2 weeks. Nurse practitioner note has been reviewed, I agree with documented findings and plan of care. Patient was seen and examined. Objective - Vital Signs Vital signs: Vital Signs Temp 97.7 F 04/12/24 07:00 Pulse 55 L 04/12/24 07:00 Resp 14 04/12/24 07:00 BP 165/76 04/12/24 07:00 Pulse Ox 99 04/12/24 07:00 FiO2 21 04/11/24 08:39 Intake & Output 04/11/24 04/12/24 04/12/24 18:59 06:59 18:59 Intake Total 118 Balance 118 Intake: Oral 118 Other: Voiding Method Toilet Toilet Toilet # Voids 2 2 - Labs CBC & Chem 7: 04/11/24 05:13 04/11/24 05:13 Labs: Abnormal Lab Results - Last 24 Hours (Table) 04/11/24 04/11/24 04/11/24 Range/Units 11:54 16:52 21:03 POC Glucose (mg/dL) 116 H 130 H 118 H (70-110) mg/dL 04/12/24 Range/Units 06:01 POC Glucose (mg/dL) 122 H (70-110) mg/dL
[2024-04-12 13:03] LABS: Glucose,Whole Blood 82 mg/dL (70-110)
--- NOTE | 2024-04-12 13:13 | CA ---
Lexiscan Nuclear Stress Test Report Name: Bello Zavala Exam Date: 04/12/2024 11:44 Exam Location: [facility] Stress Ht (in): Wt (lb): BSA: Ordering Phys: Loida Rivera Referring Phys: TRE FRANCO Technologist: RE/WAYNE Age: 69 Gender: M : 1955 Procedure CPT: Indications: Reflex order-Stress test ICD-10 Codes: Patient History: Chest pain Medications: Meds past 24 hrs: Pretest Chest Pain: STRESS TEST Lexiscan Protocol Exercise Duration (min:sec): 01:[address] Depressions (mm): Angina Score: Ling Score: Resting HR (bpm): 57 Peak HR (bpm): 92 Resting BP (mmHg): 188 / 80 Peak BP (mmHg): 207 / 74 MPHR: 151 Target HR: 128 % MPHR: 61 METS: 1.0 Total Dose: Peak Dose: Atropine: Double Product: 92963 BP Response: Stress Termination: INFUSION COMPLETE Stress Symptoms: NO SYMPTOMS Stress Summary: ECG ANALYSIS Resting ECG: Stress ECG: CONCLUSIONS Nondiagnostic stress test Dr. Tre Franco MD (Electronically Signed) Final Date: 12 April 2024 13:12
--- NOTE | 2024-04-12 16:09 | NM ---
EXAMINATION TYPE: NM stress lexiscan cardiolite DATE OF EXAM: 04/12/2024 COMPARISON: NONE HISTORY: TECHNIQUE: After the intravenous administration of 8.7 mCi Tc 99m Sestamibi - Cardiolite resting SPE CT images acquired 60 minutes post injection. At peak stress 26.2 mCi Tc 99m Sestamibi - Stress images obtained 30 minutes post injection The patient was stressed with 0.4mg Lexiscan. FINDINGS: There is diminished radiotracer accumulation along the inferior lateral wall near the cardiac apex ne ar the cardiac base. No reversible perfusion defects are evident. Gated wall motion is normal Ejection fraction is calculated to be 47 %. IMPRESSION: 1. Fixed defect along the inferior lateral wall near the cardiac apex and near the cardiac base. Xavier elate for prior infarct in this region no reversible perfusion defect evident. 2. Low ejection fraction of 47%. Normal greater than 50%. [facility], , 04/12/2024 4:07 PM
[2024-04-12 17:07] LABS: Glucose,Whole Blood 122 mg/dL (70-110)
[2024-04-12 20:06] LABS: Glucose,Whole Blood 93 mg/dL (70-110)
[2024-04-12] MEDS: ACETAMINOPHEN TAB 325 MG TAB PO PRN (20:52)
[2024-04-13 05:54] LABS: Glucose,Whole Blood 110 mg/dL (70-110)
[2024-04-13 07:16] VITALS: TEMP 97.6
[2024-04-13 08:03] VITALS: BP 150/82; PULSE 55; RESP 16
--- NOTE | 2024-04-13 08:35 | P.PN ---
Subjective Progress Note Date: 04/13/24 Consult reason: chest pain History of present illness: This is a 69-year-old male patient of Dr. Honeycutt with past medical history of coronary artery disease with stent placement greater than 20 years ago, moderate LVH with no LVOT obstruction, hypertension, diabetes mellitus type 2, obesity, history of PE on warfarin. We have been asked to evaluate the patient for chest pain. Patient states he developed sharp chest pain on the left side of his chest that also went to his left arm and the left side of his neck. The pain did not change with deep breathing. Nitroglycerin did not help his pain. He states it was similar to pain he had before his stent placement 20 years ago. Patient has quit smoking. Blood pressure 149/69, heart rate 56, pulse ox 96% on room air. Patient was initially seen at [facility] and transferred to [facility]. EKG: Sinus rhythm with no acute ST-T wave changes Laboratory studies: D-dimer 0.21. WBC 5.3, hemoglobin 12.6. Electrolytes and renal function are normal. AST 41, ALT 57. Home cardiac medications: Atorvastatin 80 mg daily, Imdur 30 mg daily, lisinopril 10 mg daily, Lopressor 25 mg twice daily, Lovaza 1 g twice daily, warfarin 6 mg at bedtime. Dobutamine stress echocardiogram performed 12/2022 was normal Echocardiogram performed 12/2022 reveals normal LV function with EF 50 to 55%, moderate concentric LVH. Normal diastolic filling pressure. No significant ventricular dysfunction. No prior echocardiogram to compare. 04/12/2024 Patient is seen and examined. He denies having any chest pain. Yesterday, stress test needed to be delayed due to patient receiving beta-sohan. We are changing dobutamine stress echocardiogram to Lexiscan today. Blood pressure 165/76, heart rate 55, pulse ox 95% on room air. 04/13/2024 Patient seen and examined. Yesterday he underwent Lexiscan stress test which revealed a fixed defect along the inferior lateral wall near the cardiac apex and near the cardiac base. Correlate for prior infarct in this region. No reversible perfusion defect evident. EF 47%. Patient updated with results of Lexiscan. He denies having any chest pain at this time. Blood pressure 150/82, heart rate 55, pulse ox 94% on room air. Physical examination: Gen: This is a 69-year-old male in no acute distress VS: reviewed HEENT: Head is atraumatic, normocephalic. Pupils equal, round. Sclerae is anicteric. NECK: Supple. No JVD. LUNGS: Clear to auscultation. No wheezes or rhonchi. No intercostal retractions. HEART: Regular rate and rhythm. Systolic murmur. ABDOMEN: Soft No tenderness. EXTREMITIES: No pedal edema. No calf tenderness. NEUROLOGICAL: Patient is awake, alert and oriented x3. Assessment: Atypical chest pain, acute coronary syndrome ruled out History of coronary artery disease with stent placement in the past Moderate LVH with no LVOT obstruction Hypertension Diabetes mellitus type 2 Obesity History of PE on warfarin Plan: Continue patient's home cardiac medications Patient is cleared for discharge from cardiology and may follow-up in the office with Dr. Honeycutt in 1 to 2 weeks. Nurse practitioner note has been reviewed, I agree with documented findings and plan of care. Patient was seen and examined. Objective - Vital Signs Vital signs: Vital Signs Temp 97.6 F 04/13/24 07:00 Pulse 54 L 04/13/24 07:00 Resp 15 04/13/24 07:00 BP 121/61 04/13/24 07:00 Pulse Ox 99 04/13/24 07:00 FiO2 21 04/11/24 08:39 Intake & Output 04/12/24 04/13/24 04/13/24 18:59 06:59 18:59 Other: Voiding Method Toilet # Voids 3 2 - Labs CBC & Chem 7: 04/11/24 05:13 04/11/24 05:13 Labs: Abnormal Lab Results - Last 24 Hours (Table) 04/12/24 Range/Units 17:06 POC Glucose (mg/dL) 122 H (70-110) mg/dL
[2024-04-13 09:08] LABS: INR 1.1 (<1.2); Prothrombin Time 12.3 sec (10.0-12.5)
--- NOTE | 2024-04-13 09:14 | P.PN ---
Progress Note - Text Progress Note Date: 04/12/24 Chief Complaint: Sharp chest pain This is a pleasant 69-year-old patient follows Dr. Wayne Durán. Patient has known CAD with stent. About 11 years ago. About 5 AM woken up with with sharp pains in the left side of the chest. Going down the left arm. No dizziness no lightheadedness. No shortness of breath. Symptoms lasted good over 2 hours. Patient had a cold about 3 weeks ago. Also recovered from shingles. 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 April 11: No further chest pain. Received beta-sohan. Stress test postponed till tomorrow. April 12: Pending a nuclear stress test later today. No chest pain. Has been up to the bathroom. Being followed by cardiology. Medications reviewed Past medical history to include: CAD with stent about 11years ago, diabetes, fibromyalgia, GERD, hypertension, hyperlipidemia, pulmonary embolism, seizure disorder, obstructive sleep apnea uses CPAP, DJD, back surgery Social history: Patient smoked up to 3 packs a day for 36 years stopped about 17years ago. Alcohol use in the past l. Lives alone. On SSI. Physical examination: VITAL SIGNS: 98.5, 62, 18, 132 x 71, 97% room air GENERAL: Resting in bed EYES: Pupils equal. Conjunctiva normal. HEENT: External appearance of nose and ears normal, oral cavity grossly normal. NECK: JVD not raised; masses not palpable. HEART: First and second heart sounds are normal; no edema. LUNGS: Respiratory rate normal; decreased breath sounds. ABDOMEN: Soft, nontender, liver spleen not palpable, no masses palpable. PSYCH: Alert and oriented x3; mood and affect normal. MUSCULOSKELETAL:No Clubbing/cyanosis;muscles-grossly intact some reproducible pain left costochondral junction INVESTIGATIONS, reviewed in the clinical context: April 11: White count 5.3 hemoglobin 12.6 potassium 4.3 creatinine 0.9. D- dimer 0.21 April 10: White count 5.8 hemoglobin 13.7 platelets 169 sodium 139 potassium 4.7 creatinine 0.82 Troponin I less than 0.012 x 3 Assessment and plan: -Left chest wall pain some reproducibility in a patient with known coronary art rowdy disease. Aspirin. Lipitor. Lopressor. Cardiology following. Troponin negative Scheduled for nuclear stress test later today -CAD with a prior stent Aspirin, Lipitor, Lopressor. -GERD Protonix -Diabetes mellitus type 2 on oral hypoglycemic Glucophage -Primary osteoarthritis Celebrex -Essential hypertension Lopressor, Zestril, -Hyperuricemia Allopurinol -Hyperlipidemia Lipitor 80 mg -Seizure disorder vimpat -Chronic pulmonary embolism On Coumadin -Full code Nuclear stress test today. No chest pain today. Past Medical History Past Medical History: Coronary Artery Disease (CAD), Chest Pain / Angina, CVA/TIA, Diabetes Mellitus, Fibromyalgia, GERD/Reflux, Hyperlipidemia, Hypertension, Pneumonia, Pulmonary Embolus (PE), Seizure Disorder, Sleep Apnea/CPAP/BIPAP, Syncope Additional Past Medical History / Comment(s): degenerative disc disease History of Any Multi-Drug Resistant Organisms: None Reported Past Surgical History: Back Surgery, Heart Catheterization With Stent Additional Past Surgical History / Comment(s): plate in neck, left arm, left shoulder Date of Last Stent Placement:: 2016 Past Psychological History: No Psychological Hx Reported Smoking Status: Former smoker Past Alcohol Use History: Heavy Past Drug Use History: None Reported
[2024-04-13] MEDS: ENOXAPARIN 150 MG/ML SYRINGE SQ STA (11:09)
--- NOTE | 2024-04-13 17:27 | P.DS ---
Providers Date of admission: 04/10/24 10:36 Expected date of discharge: 04/13/24 Attending physician: Misael Rivera Consults: 04/10/24 10:36 Consult Physician Routine Consulting Provider: [facility] Consult Reason/Comments: chest pain. seen by Dr. Honeycutt Do you want consulting provider notified?: Yes Primary care physician: Wayne Durán [facility] Course: Chief Complaint: Sharp chest pain This is a pleasant 69-year-old patient follows Dr. Wayne Durán. Patient has known CAD with stent. About 11 years ago. About 5 AM woken up with with sharp pains in the left side of the chest. Going down the left arm. No dizziness no lightheadedness. No shortness of breath. Symptoms lasted good over 2 hours. Patient had a cold about 3 weeks ago. Also recovered from shingles. 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 April 11: No further chest pain. Received beta-sohan. Stress test postponed till tomorrow. April 12: Pending a nuclear stress test later today. No chest pain. Has been up to the bathroom. Being followed by cardiology. April 13: Nuclear stress test showed a fixed defect. Evaluated by cardiology. No further symptoms. Cleared for discharge. 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 INR 1.1. Will be given 150 mg subcu Lovenox. Coumadin to continue patient will follow-up for his INR check Past medical history to include: CAD with stent about 11years ago, diabetes, fibromyalgia, GERD, hypertension, hyperlipidemia, pulmonary embolism, seizure disorder, obstructive sleep apnea uses CPAP, DJD, back surgery Social history: Patient smoked up to 3 packs a day for 36 years stopped about 17years ago. Alcohol use in the past l. Lives alone. On SSI. Physical examination: VITAL SIGNS: 97.6, 55, 16, 150 very 2, 94% room air GENERAL: Comfortable EYES: Pupils equal. Conjunctiva normal. HEENT: External appearance of nose and ears normal, oral cavity grossly normal. NECK: JVD not raised; masses not palpable. HEART: First and second heart sounds are normal; no edema. LUNGS: Respiratory rate normal; decreased breath sounds. ABDOMEN: Soft, nontender, liver spleen not palpable, no masses palpable. PSYCH: Alert and oriented x3; mood and affect normal. MUSCULOSKELETAL:No Clubbing/cyanosis;muscles-grossly intact some reproducible pain left costochondral junction INVESTIGATIONS, reviewed in the clinical context: April 11: White count 5.3 hemoglobin 12.6 potassium 4.3 creatinine 0.9. D- dimer 0.21 April 10: White count 5.8 hemoglobin 13.7 platelets 169 sodium 139 potassium 4.7 creatinine 0.82 Troponin I less than 0.012 x 3 Assessment and plan: -Left chest wall pain some reproducibility in a patient with known coronary artery disease.: Likely musculoskeletal Aspirin. Lipitor. Lopressor. Clear by cardiology for discharge. Troponin negative Nuclear stress test showing a fixed defect -CAD with a prior stent Aspirin, Lipitor, Lopressor. -GERD Protonix -Diabetes mellitus type 2 on oral hypoglycemic Glucophage -Primary osteoarthritis Celebrex -Essential hypertension Lopressor, Zestril, -Hyperuricemia Allopurinol -Hyperlipidemia Lipitor 80 mg -Seizure disorder vimpat -Chronic pulmonary embolism On Coumadin -Full code Disposition: Home Past Medical History Past Medical History: Coronary Artery Disease (CAD), Chest Pain / Angina, CVA/TIA, Diabetes Mellitus, Fibromyalgia, GERD/Reflux, Hyperlipidemia, Hypertension, Pneumonia, Pulmonary Embolus (PE), Seizure Disorder, Sleep Apnea/CPAP/BIPAP, Syncope Additional Past Medical History / Comment(s): degenerative disc disease History of Any Multi-Drug Resistant Organisms: None Reported Past Surgical History: Back Surgery, Heart Catheterization With Stent Additional Past Surgical History / Comment(s): plate in neck, left arm, left shoulder Date of Last Stent Placement:: 2016 Past Psychological History: No Psychological Hx Reported Smoking Status: Former smoker Past Alcohol Use History: Heavy Past Drug Use History: None Reported Plan - Discharge Summary Discharge Rx Participant: No New Discharge Prescriptions: Continue Omeprazole 20 mg PO DAILY Gabapentin 300 mg PO TID metFORMIN HCL 500 mg PO BID Warfarin Sodium 6 mg PO HS lisinopriL [Zestril] 10 mg PO DAILY Metoprolol Tartrate [Lopressor] 25 mg PO BID Atorvastatin [Lipitor] 80 mg PO DAILY Celecoxib [CeleBREX] 100 mg PO W/BRKFST Lacosamide [Vimpat] 150 mg PO BID allopurinoL [Zyloprim] 100 mg PO BID Isosorbide Mononitrate ER [Imdur] 30 mg PO DAILY [place]-3 Acid Ethyl Esters [Lovaza] 1 gm PO BID Discontinued valACYclovir HCL [Valacyclovir] 1,000 mg PO BID Sulfamethox-Tmp 800-160Mg [Bactrim DS 800-160 mg] 1 tab PO Q12HR Discharge Medication List Atorvastatin [Lipitor] 80 mg PO DAILY 12/13/22 [History] Celecoxib [CeleBREX] 100 mg PO W/BRKFST 12/13/22 [History] Gabapentin 300 mg PO TID 12/13/22 [History] Isosorbide Mononitrate ER [Imdur] 30 mg PO DAILY 12/13/22 [History] Lacosamide [Vimpat] 150 mg PO BID 12/13/22 [History] Metoprolol Tartrate [Lopressor] 25 mg PO BID 12/13/22 [History] [place]-3 Acid Ethyl Esters [Lovaza] 1 gm PO BID 12/13/22 [History] Omeprazole 20 mg PO DAILY 12/13/22 [History] Warfarin Sodium 6 mg PO HS 12/13/22 [History] allopurinoL [Zyloprim] 100 mg PO BID 12/13/22 [History] lisinopriL [Zestril] 10 mg PO DAILY 12/13/22 [History] metFORMIN HCL 500 mg PO BID 12/13/22 [History] Follow up Appointment(s)/Referral(s): Benny Honeycutt MD [Medical Doctor] - 2 Weeks Wayne Durán MD [Primary Care Provider] - 1-2 days Patient Instructions/Handouts: Chest Pain (DC) Discharge Disposition: HOME SELF-CARE
== END 2024-04-13 11:15 | disposition home or self-care (01) ==
LOC: EC 09:52 → 6NMEDSUR 10:36
PROVIDERS: ADMIT Hospitalist; ATTEND Hospitalist
DX: R07.89 Other chest pain (principal); I25.10 Atherosclerotic heart disease of native coronary artery without angina pectoris; I27.82 Chronic pulmonary embolism; E11.9 Type 2 diabetes mellitus without complications; E78.5 Hyperlipidemia, unspecified; E79.0 Hyperuricemia without signs of inflammatory arthritis and tophaceous disease; G40.909 Epilepsy, unspecified, not intractable, without status epilepticus; G47.33 Obstructive sleep apnea (adult) (pediatric); K21.9 Gastro-esophageal reflux disease without esophagitis; M19.91 Primary osteoarthritis, unspecified site; M79.7 Fibromyalgia; I10 Essential (primary) hypertension; E66.9 Obesity, unspecified; Z68.35 Body mass index [BMI] 35.0-35.9, adult; Z79.1 Long term (current) use of non-steroidal anti-inflammatories (NSAID); Z79.01 Long term (current) use of anticoagulants; Z79.2 Long term (current) use of antibiotics; Z79.82 Long term (current) use of aspirin; Z79.84 Long term (current) use of oral hypoglycemic drugs; Z79.899 Other long term (current) drug therapy; Z87.891 Personal history of nicotine dependence; Z86.19 Personal history of other infectious and parasitic diseases; Z95.5 Presence of coronary angioplasty implant and graft; Z86.73 Personal history of transient ischemic attack (TIA), and cerebral infarction without residual deficits
CPT/HCPCS: 96372; 96361; 96374; 96375; 99285; 36415; 94760; 93005; 93017; 85379; 80053 ×2; 83735; 84484; 85025 ×2; 85610 ×2; 85730; 78452; G0378 ×4; A9500; J2270; J1650; J2785; J1885; J2470

== ENCOUNTER 2024-09-26 14:13 | Emergency (ER) | payer OTHER, MEDICARE ==
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
[2024-09-26 14:36] VITALS: RESP 18; TEMP 98.6
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
[2024-09-26 14:54] LABS: Basophils # (A) 0.04 10*3/uL (0.00-0.10); Basophils % (A) 0.7 %; Eosinophils # (A) 0.14 10*3/uL (0.04-0.35); Eosinophils % (A) 2.4 %; HCT 40.4 % (39.6-50.0); HGB 14.6 g/dL (13.0-17.0); Lymphocytes # (A) 1.82 10*3/uL (0.90-5.00); Lymphocytes % (A) 31.2 %; MCH 30.9 pg (27.0-32.0); MCHC 36.1 g/dL (32.0-37.0); MCV 85.6 fL (80.0-97.0); Mean Platelet Volume 10.6 fL (9.5-12.2); Monocytes # (A) 0.48 10*3/uL (0.20-1.00); Monocytes % (A) 8.2 %; Neutrophils # (A) 3.33 10*3/uL (1.80-7.70); Neutrophils % (A) 57.2 %; Platelet Count 160 10*3/uL (140-440); RBC 4.72 10*6/uL (4.40-5.60); RDW 12.7 % (11.5-14.5); WBC 5.83 10*3/uL (4.50-10.00)
[2024-09-26 15:06] LABS: INR 4.4 (<1.2); Partial Thromboplastin Time 40.3 sec (22.0-30.0); Prothrombin Time 43.5 sec (10.0-12.5)
[2024-09-26 15:22] LABS: ALT 94 U/L (4-49); African American GFR (CKD) >90 (>60 ml/min/1.73 sqM); Albumin 4.7 g/dL (3.5-5.0); Anion Gap 8 mmol/L; Blood Urea Nitrogen 20 mg/dL (9-20); Calcium 9.4 mg/dL (8.4-10.2); Carbon Dioxide 27 mmol/L (22-30); Chloride 104 mmol/L (98-107); Glucose 100 mg/dL (74-99); Non-African American GFR(CKD) >90 (>60 ml/min/1.73 sqM); Sodium 139 mmol/L (137-145); Total Bilirubin 1.2 mg/dL (0.2-1.3); Total Protein 7.5 g/dL (6.3-8.2)
[2024-09-26 15:23] LABS: AST 93 U/L (17-59); Alkaline Phosphatase 68 U/L (38-126); Potassium 4.1 mmol/L (3.5-5.1)
[2024-09-26 15:47] VITALS: BP 159/98; PULSE 72
== END 2024-09-26 15:48 | disposition home or self-care (01) ==
LOC: EC 14:13
DX: Z04.1 Encounter for examination and observation following transport accident (principal); F19.90 Other psychoactive substance use, unspecified, uncomplicated; Z87.891 Personal history of nicotine dependence; V89.2XXA Person injured in unspecified motor-vehicle accident, traffic, initial encounter; Y92.410 Unspecified street and highway as the place of occurrence of the external cause
CPT/HCPCS: 36415; 70450; 71045; 72125; 72170; 80053; 85025; 85610; 85730; 99284